=== PATIENT | female | born 1960 | race African-American/Black ===

== ENCOUNTER 2018-06-25 21:43 | Inpatient (IN) | payer OTHER ==
[2018-06-25] MEDS ORDERED: HYDROcodone/Acetaminophen 10/325 mg Tablet PO PRN (22:39)
[2018-06-25] MEDS ORDERED: hydrALAZINE 20 MG/ML VIAL SLOW IVP PRN (22:39)
[2018-06-25] MEDS ORDERED: Dextrose 50% Abboject 50 ML SYRINGE SLOW IVP PRN (22:39)
[2018-06-25] MEDS ORDERED: HumaLOG 300 UNITS/3 ML VIAL SC PRN (22:39)
[2018-06-25] MEDS ORDERED: Ondansetron PF 4 MG/2 ML Vial IVP PRN (22:39)
[2018-06-25] MEDS ORDERED: Dextrose 5% in Water 1,000 ML IV PRN (22:39)
[2018-06-25] MEDS ORDERED: Acetaminophen 325 MG Suppository ONE (22:51)
[2018-06-25] MEDS ORDERED: Acetaminophen 325 MG TAB ONE (22:51)
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
[2018-06-26] MEDS: Acetaminophen 325 MG TAB PO SCH ×3 (00:28→10:16)
[2018-06-26 00:29] VITALS: BMI 31.8
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
[2018-06-26 04:12] VITALS: TEMP 98.7
[2018-06-26 04:42] LABS: #Lymphocytes 2.8 thou/uL (1.20-3.40); #Monocytes 0.8 thou/uL (0.11-0.59); #Neutrophils 6.1 thou/uL (1.40-6.50); %Eosinophils 0.3 % (0.0-10.0); %Lymphocytes 28.9 % (21.0-51.0); %Monocytes 8.1 % (0.0-10.0); %Neutrophils 62.7 % (42.0-75.0); Hemoglobin 12.6 g/dL (12.0-16.0); Mean Corpuscular Hemoglobin 29.2 pg (27.0-31.0); Mean Corpuscular Volume 88.5 fL (78.0-98.0); Mean Platelet Volume 7.7 fL (7.4-10.4); Platelet Count 267 thou/uL (130-400); RBC Distribution Width 12.3 % (11.5-14.5); White Blood Cell (WBC) Count 9.7 thou/uL (4.8-10.8)
[2018-06-26 05:06] LABS: Anion Gap 15 mmol/L (10-20); BUN (Urea Nitrogen) 10 mg/dL (9.8-20.1); Calc. Creatinine Clearance 116 mL/min (70-130); Calcium 9.5 mg/dL (7.8-10.44); Carbon Dioxide 25 mmol/L (22-29); Chloride 101 mmol/L (98-107); Estimated GFR-MDRD Greater than 90; Glucose 156 mg/dL (70-105); Potassium 3.3 mmol/L (3.5-5.1); Sodium 138 mmol/L (136-145)
[2018-06-26] MEDS ORDERED: Potassium Chloride 20 MEQ TAB PO SCH (07:45)
[2018-06-26] MEDS ORDERED: Losartan/Hydrochlorothiazide 100 mg/25 mg Tablet PO SCH (09:00)
[2018-06-26] MEDS ORDERED: Famotidine 20 MG TAB PO SCH (09:00)
[2018-06-26] MEDS ORDERED: Amlodipine 10 MG TAB PO SCH (09:00)
--- NOTE | 2018-06-26 09:57 | CT ---
PRELIMINARY REPORT/[facility]/EMERGENTY AFTER-HOURS PROCEDURE Addendum created by Ha Harkins MD on 06/26/2018 4:23 AM Central Time ([place] & [place]) CT head images f rom outside hospital performed 06/25/18 were subsequently submitted for review. Subdural hemorrhage a ppear stable from prior. Initial Report created on 06/26/2018 4:02 AM Central Time ([place] & [place]) CT Head Without Contrast EXAM DATE/TIME: 06/26/2018 3:34 AM CLINICAL HISTORY: 57 years old, female; Condition or disease; Other: Sdh; Patient HX: F/u sdh TECHNIQUE: Axial computed tomography images of the head/brain without contrast. COMPARISON: No relevant prior studies available. FINDINGS: Brain: There is acute RIGHT parafalcine subdural hemorrhage measuring 4 mm in thickness. No midline s hift or brain edema. Ventricles: Normal. No ventriculomegaly. Bones/joints: Normal. No acute fracture. Sinuses: Normal as visualized. No acute sinusitis. Mastoid air cells: Normal as visualized. No mastoid effusion. Soft tissues: Normal. IMPRESSION: There is acute RIGHT parafalcine subdural hemorrhage measuring 4 mm in thickness. Comparison with damien or imaging (not currently available) is advised. Thank you for allowing us to participate in the care of your patient. Dictated and Authenticated by: Ha Harkins MD 06/26/2018 4:02 AM Central Time ([place] & [place]) FINAL REPORT CT BRAIN WITHOUT CONTRAST: Date: 06/26/18 FINDINGS/IMPRESSION: I agree with the preliminary report given by Tyrese. Acute right parafalcine subdural hemorrhage is sta ble since earlier exam at 1922 hours on 07/05/18. POS: [facility]
[2018-06-26] MEDS ORDERED: Cyclobenzaprine 10 MG TAB PO PRN (10:01)
[2018-06-26] MEDS ORDERED: Cyclobenzaprine 10 MG TAB PO SCH (10:15)
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
[2018-06-26 14:11] VITALS: BP 125/72
[2018-06-26] MEDS ORDERED: Atorvastatin Calcium 20 MG TAB PO SCH (21:00)
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
== END 2018-06-26 13:39 | disposition home or self-care (01) | DRG 87 ==
LOC: ERS 21:43 → ERHOLD 22:39 → OBSVTOIN 22:39 → CCU 06-26 00:14
PROVIDERS: ADMIT Surgery; ATTEND Surgery
DX: S06.5X0A Traumatic subdural hemorrhage without loss of consciousness, initial encounter (principal); V49.50XA Passenger injured in collision with unspecified motor vehicles in traffic accident, initial encounter; Y92.410 Unspecified street and highway as the place of occurrence of the external cause; I10 Essential (primary) hypertension; E78.5 Hyperlipidemia, unspecified; E11.65 Type 2 diabetes mellitus with hyperglycemia; Z82.3 Family history of stroke; Z82.49 Family history of ischemic heart disease and other diseases of the circulatory system
CPT/HCPCS: 36415; 36416; 70450; 72128; 72131; 80048; 83735; 85025; 90471; 90686; 99285; G0008; G0390; G8987-GO-CI; G8988-GO-CI; G8989-GO-CI